=== PATIENT | male | born 1995 | race Caucasian/White ===

== ENCOUNTER 2016-12-24 17:01 | Emergency (ER) | payer BC, OTHER ==
[~2016-12-24] VITALS: Ht 185.4 cm; Wt 147.0 kg
[2016-12-24] MEDS ORDERED: HYDROmorphone 1 MG/ML, 1ML IM STA (17:33)
[2016-12-24] MEDS ORDERED: HYDROmorphone 1 MG/ML, 1ML ONE (17:37)
[2016-12-24] MEDS ORDERED: PLEASE ENTER ALLERGIES MC SCH ×2 (18:00)
[2016-12-24 18:22] LABS: ASPARTATE AMINO TRANSFERASE 93 U/L (15-37); BLOOD UREA NITROGEN 9 mg/dL (7-18)
[2016-12-24 18:26] LABS: HEMATOCRIT 36.2 % (39.2-51.8); HEMOGLOBIN 11.9 g/dL (13.7-18.0); WHITE BLOOD COUNT 11.3 x10^3/uL (3.4-10)
[2016-12-24 19:48] VITALS: BP 152/76
== END 2016-12-24 20:02 | disposition home or self-care (01) ==
LOC: ED 19:56
DX: S46.912A Strain of unspecified muscle, fascia and tendon at shoulder and upper arm level, left arm, initial encounter (principal); X58.XXXA Exposure to other specified factors, initial encounter; Y93.89 Activity, other specified; Y92.89 Other specified places as the place of occurrence of the external cause; Y99.8 Other external cause status
CPT/HCPCS: 36415; 71101; 80053; 82550; 85025; 96372; 99285; J1170